=== PATIENT | male | born 1945 | race Caucasian/White ===

== ENCOUNTER 2019-01-15 14:42 | Inpatient (IN) | payer MEDICARE ==
[~2019-01-15] VITALS: Ht 170.2 cm; Wt 57.7 kg
[2019-01-15] MEDS ORDERED: VENTOLIN HFA18 GM INH (15:55)
--- NOTE | 2019-01-15 18:20 | NUR ---
PT ABLE TO SCOOT SELF FROM GURNEY TO BED WITH SOME EFFORT. PT ALERT AND ORIENTED X4, DISPLAYS DIFFICULTY BREATHING WITH ACTIVITY. SIMPLE MASK IS IN PLACE AT THIS TIME. PT WELL ABLE TO FOLLOW DIRECTION.
--- NOTE | 2019-01-15 18:38 | NUR ---
IV SITE IS INTACT, NO REDNESS OR SWELLING NOTED, PT DENIES PAIN WITH FLUSH. PT DENIES PAIN AND NAUSEA IN GENERAL. PT HAS BIPAP IN PLACE, CAROLINE WELL. PT DENIES NUMBNESS IN GENERAL.
--- NOTE | 2019-01-15 19:46 | EKG ---
[facility] [address] [facility] [place] [address] Signed Sinus tachycardia Nonspecific intraventricular conduction delay Borderline ECG No previous ECGs available Confirmed by HUAN CHAPARRO DO ([id number]) on 01/15/2019 7:46:19 PM Electronically Signed By: HUAN CHAPARRO DO 01/15/19 194 PATIENT NAME: YSABEL KOVACS Electrocardiogram DATE OF : 43 PHYSICIAN: HUAN CHAPARRO DO REPORT #: [id number] REPORT IS CONFIDENTIAL AND NOT TO BE RELEASED WITHOUT AUTHORIZATION
--- NOTE | 2019-01-15 19:54 | NUR ---
PT IS ASLEEP WITH BIPAP IN PLACE. WILL ALLOW TO SLEEP FOR NOW.
--- NOTE | 2019-01-15 20:23 | NUR ---
PT WILL AWAKEN TO SAY A FEW WORDS. CONT TO REST COMFORTABLY ON BIPAP. FAMILY IN ROOM. HEALTH HX OBTAINED FROM .
--- NOTE | 2019-01-15 21:30 | NUR ---
IS AWAKE AND VISITING WITH WITH BIPAP IN PLACE. PT STATES HE IS FEELING BETTER AND THAT THE BIPAP IS HELPING TO OPEN UP HIS LUNGS.
--- NOTE | 2019-01-16 00:38 | NUR ---
RT IN TO GIVE NEB. PT BACK ON BIPAP.
--- NOTE | 2019-01-16 02:30 | NUR ---
CONT TO SLEEP WITH BIPAP IN PLACE
--- NOTE | 2019-01-16 04:26 | NUR ---
PT AWAKE TO VOID. OFF MASK BRIEFLY FOR DRINK OF SODA, DID NOT DESAT AND NO INC WORK OF BREATHING. STATES HAS BEEN SLEEPING LIKE A LOG AND THAT THE BIPAP ISN'T BOTHERING ME. WEARING BIPAP WHILE SLEEPING IS ENCOURAGED.
--- NOTE | 2019-01-16 07:30 | NUR ---
REPORT RECIEVED. IN BED WITH BIPAP ON.
--- NOTE | 2019-01-16 08:30 | NUR ---
ASSESSMENT DONE. BIPAP OFF. O2 AT 3.5 L PER NC APPLIED. PATIENT STATES HE SLEPT WELL LAST NIGHT AND FEELS MUCH BETTER TODAY. CLEAR LIQUIDS ORDERED. LUNGS ARE WITH DIMINISHED BREATH SOUNDS THROUGHOUT.
--- NOTE | 2019-01-16 09:00 | NUR ---
DR. CHAPARRO HERE TO SEE PATIENT AND TALK WITH PATIENT AND FAMILY. REMAINS OFF BIPAP. IS WITH INCREASED WORK OF BREATHING WITH MILD EXERTION.
--- NOTE | 2019-01-16 09:41 | NUR ---
back on bipap. 35% FIO2 I-16,E-8.
--- NOTE | 2019-01-16 10:00 | NUR ---
BACK ON O2 AT 3.5 L NC. IS WATCHING TV AND TAKING FEW BITES OF JELLO AND PUDDING.
--- NOTE | 2019-01-16 10:28 | NUR ---
REMAINS ON O2 AT 3.5 L NC. IN ROOM.
--- NOTE | 2019-01-16 11:43 | NUR ---
RESUMING CARE OF THIS PATIENT AT THIS TIME. PT SITTING UP IN BED ON RIGHT SIDE WITH PT'S AT BEDSIDE. PT STATES HE IS MORE HUNGRY AND DECIDING ON SOMETHING FOR LUNCH. SOME EXP WHEEZING NOTED IN LUNGS, BUT OVERALL STILL VERY DIMINISHED BREATH SOUNDS. PT REMAINS ON 4 L OXYGEN VIA NASAL CANNULA. PT FINISHED NEB TX WITH RT. CONTINUE TO MONITOR CLOSELY.
--- NOTE | 2019-01-16 12:25 | NUR ---
PATIENT LYING IN BED, EATING HIS LUNCH. SP02 93% CURRENTLY. PT VOID INTO URINAL INDEPENDENTLY WHILE IN BED. WILL CONITNUE TO MONITOR.
--- NOTE | 2019-01-16 13:40 | NUR ---
ON BIPAP. PATIENT HAS BEEN LAYING ON RIGHT SIDE, WILL NOT LAY ON LEFT SIDE OR BACK. STATES "THIS IS THE WAY I ALWAYS LAY" ROUTINE SOLUMEDROL IV GIVEN.
--- NOTE | 2019-01-16 15:13 | NUR ---
NO FUTHER CHANGES, PATIENT IS RESTFUL.
--- NOTE | 2019-01-16 16:00 | NUR ---
ASSESSMENT DONE. SOMEWHAT FRUSTRATED REGARDING CORDS/IV TUBING AND STAFF COMING INTO TALK TO HIM. IS WITH EXTREME SHORTNESS OF BREATH WITH ANY EXERTION WHEN BIPAP OFF.
--- NOTE | 2019-01-16 18:41 | NUR ---
SITTING UP IN BED FOR DINNER. O2 AT 3.5 NC WHILE EATING.
--- NOTE | 2019-01-16 19:17 | NUR ---
REPORT TO NEXT SHIFT. TOOK DINNER WELL. O2 AT 3 L NC.
--- NOTE | 2019-01-16 20:13 | NUR ---
PT RESTING IN BED WITH BIPAP ON. PT REPORTS AGITATION AND DROWSINESS. AAOX4. SINUS TACH WITH BBB ON MONITOR. BUL DIMINISHED WITH EXPIRATORY WHEEZE NOTED, BLL DIMINISHED, NO COUGH, DYSPNEA WITH EXERTION, SPO2 99% WITH BIPAP 16/8 FIO2 35%. BOWEL TONES ACTIVE, DENIES NAUSEA BUT REPORTS NAUSEA AT NIGHT AND REQUESTING BEDSIDE TUMS, EDUCATION PROVIDED. VOIDING QS. IV SITES, FLUSHED, PATENT AND INTACT. INTEGUMENTARY GROSSLY INTACT, REFUSING TURNING. UPDATED PLAN OF CARE. REINFORCED SAFETY AND FALL PRECAUTIONS. EDUCATION PROVIDED ON NAUSEA MEDICATION AND USES, PT REFUSED, PT REPORTS AGGITATION WITH NOT HAVING PERSONAL MEDICATIONS AT BEDSIDE, REINFORCED MEDICATION SAFETY. EDUCATION PROVIDED ON TURNING, REFUSING TO TURN OR MOVE, REPORTS MINIAL ACTIVITY AND BEDREST AT HOME, REINFORCED EDUCATION. DENIES OTHER NEEDS. CALL LIGHT WITHIN REACH.
--- NOTE | 2019-01-16 20:44 | NUR ---
CALL LIGHT ANSWERED, PT REQUESTING MASK ADJUSTMENT AND DRINK, PROVIDED. BIPAP MASK PLACED AND NO LEAK NOTED. DENIES OTHER NEEDS.
--- NOTE | 2019-01-16 22:43 | NUR ---
PT AWAKENS EASILY. INFORMED OF SHEEP SHEARER, USE AND POSSIBLE SIDE EFFECTS. PT STATES HE'S TAKEN MEDICATION BEFORE AND KNOWS. DENIES OTHER NEEDS. CALL LIGHT WITHIN REACH. PT REMAINS ON BIPAP AND TOLERATING WELL.
--- NOTE | 2019-01-16 23:53 | NUR ---
R/T IN ROOM TO ASSESS PT AND GIVEN NEB. PT CURRENTLY ON 3.5 L NC, INCREASED WOB NOTED, DENIES SOB. MILD IMPROVEMENT OF AIR MOVEMENT TO BLL. NO OTHER ACUTE CHANGES TO ASSESSMENT. DENIES OTHER NEEDS. CALL LIGHT WITHIN REACH.
--- NOTE | 2019-01-17 00:41 | NUR ---
PT PLACED BACK ON BIPAP AT THIS TIME
--- NOTE | 2019-01-17 02:00 | NUR ---
PT REMAINS RESTFUL AND ON BIPAP. RESIRATIONS EVEN AND UNLABORED. NO ACUTE DISTRESS.
--- NOTE | 2019-01-17 04:00 | NUR ---
PT REMAINS ON BIPAP AND RESTFULL.
--- NOTE | 2019-01-17 05:30 | NUR ---
NO ACUTE CHANGES TO ASSESSMENT
--- NOTE | 2019-01-17 06:00 | NUR ---
PT UP IN BED REQUESTING FOOD AND SODA, PROVIDED. PT PLACED ON 2L NC. DENIES OTHER NEEDS. CALL LIGHT WITHIN REACH
--- NOTE | 2019-01-17 07:54 | NUR ---
PT VOIDED INTO HIS URINAL, BKF HAS BEEN ORDERED. CASE MANAGEMENT INTO SEE PT AT THIS TIME.
--- NOTE | 2019-01-17 08:47 | NUR ---
PT SITING IN BED EATING BKF, AT TIMES HE APPEARS TO BE VERY SOB, BUT STATES "NO". HE IS USING THE URINAL PROVIDES CLEAR YELLOW URINE.
--- NOTE | 2019-01-17 10:41 | NUR ---
PT UP TO THE CHAIR WITH PHYSICAL THERAPY AT THIS TIME. PT BECOMES VERY SOB SPO2 DECREASD TO 89 [address] LINES CHANGED.
--- NOTE | 2019-01-17 12:00 | NUR ---
PT REMAINS UP IN THE CHAIR AT THIS TIME. PT PLACED ON BIPAP TO SEE IF IT WOULD HELP WITH HEART RATE, BUT NOT AT THIS TIME. PT CONTIOUES TO BE IN THE 1-TEENS AND SPO2 INCREASED TO 99% ON BIPAP.
--- NOTE | 2019-01-17 12:24 | NUR ---
FAMILY INTO VISIT AT THIS TIME. PT REMAINS ON BIPAP.
--- NOTE | 2019-01-17 12:29 | NUR ---
PT REMOVED FROM BIPAP AT THIS TIME, PLACED BACK ONTO VA AT THIS TIME. PT WAS UNABLE TO TALK AND VISIT WITH .
[2019-01-17] MEDS ORDERED: ATROVENT HFA12.9 GM INH (12:38)
--- NOTE | 2019-01-17 13:39 | NUR ---
PT SITTING IN CHAIR, AT HIS SIDE. PT ON NC O2, AND SPEAKING IS DIFFICULT FOR PT. HE WAS BEGINNING TO EAT G. CHEESE SANDWICH FOR LUNCH. PT BEGAN TO TELL ME THAT THE FOOD IS TERRIBLE AND HE IS SURE IT IS COOKED OUTSIDE SAH. NOT MUCH OF ANYTHING SEEMED TO BE TO HIS LIKING, GAVE ENCOURAGEMENT. HE DID SAY THAT HE DIDN'T FEEL GOOD AND THAT MAY HAVE SOMETHING TO DO WITH IT. GAVE PT BLESSING, WILL FOLLOW NEEDED
[2019-01-17] MEDS ORDERED: VITAMIN D32000 UNI1 PO (13:47)
[2019-01-17] MEDS ORDERED: METHOTREXATE2.5 MG PO (13:47)
[2019-01-17] MEDS ORDERED: FOLIC ACID0.4 MG PO (13:48)
[2019-01-17] MEDS ORDERED: CALCIUM 500 +1 EAC2 PO (13:48)
--- NOTE | 2019-01-17 13:49 | NUR ---
MED REC COMPLETE
--- NOTE | 2019-01-17 14:36 | NUR ---
I & O'S COMPLETED. PT BACK TO BED, HE HAS AN ANSWER FOR EVERY THING THAT YOU ASK HIM TO COMPLETE SO THAT HE CAN'T COMPLETE THEM DUE TO SOB. PT IS NOT HAPPY ABOUT ALL THE TUBES AND LINES AT THIS TIME. EXPLAINED THE RESON FOR THEM, BUT HE DOES NOT CARE FOR THEM. PT EDUCATION GIVEN FOR MEDICATIONS AND EXB COPD. PT LIKES "YA I CAN READ IT"
--- NOTE | 2019-01-17 15:26 | NUR ---
PT WATCHING TV AT THIS TIME. URINAL WITHIN REACH AT THIS TIME.
--- NOTE | 2019-01-17 16:42 | NUR ---
DINNER ORDER FOR PT THIS EVENING. PT IS STILL NOT HAPPY WITH THE FOOD HERE, BUT STAFF IS TRYING.
--- NOTE | 2019-01-17 16:59 | NUR ---
DINNER ORDER FOR PT THIS EVENING. HE WANTS TO REMAIN IN BED FOR HIS MEAL THIS EVENING.
--- NOTE | 2019-01-17 17:39 | NUR ---
PATIENT IN BED, DINNER, CAME PATIENT REFUSED X3 TIMES TO LAY ON HIS BACK WHILE EATING, PATIENT STATES HE DOESN'T SLEEP OR SIT WELL ON HIS BACK
--- NOTE | 2019-01-17 17:40 | NUR ---
PT DINNER IS HERE AND TRYING TO GET PT SET UP TO EAT. PT IS REFUSING TO SIT UPRIGHT IN BED ON HIS BUTT. HE WANTS TO LYE ON HIS RIGHT SIDE WITH HIS DINNER TRAY IN HIS FACE. PT GET UPSET WHEN TRYING TO EXPLAINE THE ISSUES WITH CHOKING AND HE DOES NOT WANT TO MOVE OR OR TURN TO HIS BACK. "I AM JUST FINE"
--- NOTE | 2019-01-17 18:31 | NUR ---
PT IS BACK INTO VISIT AT THIS TIME. PT REPOSITIONED IN BED AND BLOOD PRESSUER RECHECKED AND CUFF CHANGED TO THE SAMLL ONE. SEE VITAL SIGN FLOW SHEET.
--- NOTE | 2019-01-17 20:28 | NUR ---
ASSESSMENT DONE. pt RESTING IN BED "TRYING TO SLEEP." REPOSITIONED FOR ACURATE BLOOD PRESSURE. pt REQUESTED "TUMS, I'M GETTING A STOMACHACHE FROM THAT TURKEY" NIO ENTERED. URNINAL EMPTIED. ROOM TIDIED. NIGHTLY CARES DONE. CALL LIGHT WITHIN REACH.
--- NOTE | 2019-01-17 22:03 | NUR ---
MEDICATION GIVEN (SEE MAR). REPOSITIONED FOR MORE ACCURATE BLOOD PRESSURE. TURNED UP ROOM TEMPERATURE PER REQUEST. NO FURTHER REQUESTS AT THIS TIME. CALL LIGHT WITHIN REACH.
--- NOTE | 2019-01-18 00:36 | NUR ---
pt AWAKE. ASSESSMENT DONE. PROVIDED FOOD AND DRINK PER REQUEST. EMPTIED URINAL. VITALS AND I&O RECORDED. NO FURTHER REQUESTS AT THIS TIME. CALL LIGHT WITHIN REACH.
--- NOTE | 2019-01-18 01:37 | NUR ---
O2 SAT 84%, IN TO ASSESS pt. pt STATED "I DON'T FEEL SHORT OF BREATH, I'VE JUST BEEN EATING" pt PAUSED MID-SENTENCE TO BREATH. O2 INCREASED TO 4L VIA NC. RT IN ROOM, PLACED pt ON BIPAP.
--- NOTE | 2019-01-18 02:21 | NUR ---
ROUNDED ON pt. RESTING IN BED, BIPAP ON, O2 SAT 97%. NO NEEDS AT THIS TIME. CALL LIGHT WITHIN REACH.
--- NOTE | 2019-01-18 03:30 | NUR ---
ROUNDED ON pt. RESTING WITH EYES CLOSED, BIPAP ON, SAT 98%. CALL LIGHT WITHIN REACH.
--- NOTE | 2019-01-18 05:00 | NUR ---
MOVED pt FROM BiPAP TO NC ON 3 LITERS. ASSESSMENT DONE. NO CHANGES FROM PRIOR ASSESSMENT. NO REQUESTS AT THIS TIME. CALL LIGHT WITHIN REACH.
--- NOTE | 2019-01-18 06:00 | NUR ---
REPOSITIONED pt FOR ACCURATE BLOOD PRESSURE. NO REQUESTS AT THIS TIME. CALL LIGHT WITHIN REACH.
--- NOTE | 2019-01-18 07:30 | NUR ---
PATIENT SHIFT REPORT RECIEVED FROM PERSONNEL PSYCHOLOGIST RN. PATIENT RESTING IN BED AT THIS TIME AND DENIES ANY NEEDS. WILL CONTINUE TO CLSOELY MONITOR. CALL LIGHT IN REACH.
--- NOTE | 2019-01-18 08:45 | NUR ---
PATIENT RESTING IN BED. NEW IV PLACED IN RIGHT FOREARM. DC'D OTHER TWO IVS D/T LEAKING AND NOT PATENT. PATIENT TOELRATED WELL. PATIENT IS RESTING IN BED. BREAKFAST ORDERED. PATIENT GETS SOB WITH LITTLE MOVEMENT. PATIENT FAVORS RIGHT SIDE FOR COMFORT. ASSESSMENT COMPLETED. BREATH SOUNDS CLEAR AND DIMINISHED. BOWEL TONES ACTIVE. FRESH TEA AT THE BEDSIDE. WILL CONTINUE TO CLOSELY MONITOR.
--- NOTE | 2019-01-18 10:22 | NUR ---
PATIENT RESTING IN BED AT THIS TIME. BREAKFAST FINISHED. PATIENT NOTED TO GET VERY SOB WITH MINIMAL MOVEMENT. PATIENT IS PARTICULAR IN HOW HE DOES THINGS. PATIENT IS NOT USE TO HAVING HELP AND WOULD PREFER TO DO THINGS HIMSELF. PATIENT ALSO PREFERS TO LAY ON HIS RIGHT SIDE CURLED UP. OFFERED TO HELP PATIENT MOVE AND PATIENT DECLINED. WILL CONTINUE TO CLOSELY MONITOR.
--- NOTE | 2019-01-18 10:28 | NUR ---
PATIENT SHIFT REPORT RECIEVED FROM ASSOCIATE ACCOUNT MANAGER RN. PATIENT RESTING IN BED AT THIS TIME AND DENIES ANY NEEDS. WILL CONTINUE TO CLSOELY MONITOR. CALL LIGHT IN REACH.
--- NOTE | 2019-01-18 11:42 | NUR ---
RT DONE WITH NEB TREATMENTS. PATIENT DENIES WANTING TO EAT AT THIS TIME AND SAYS "I JUST FINISHED MY BREAKFAST NOT TO LONE AGO". EDUCATED PATIENT TO CALL WHEN HE FEELS READY TO ORDER SOMETHING. PATIENT ALSO UPDATES STAFF THAT HE IS STARTING TO FEEL THE URGE TO HAVE A BM, BUT DOES NOT FEEL HE CAN TOLERATE GETTING UP RIGHT NOW. OFFERED PATIENT A BEDPAN. PATIENT DENEID AND STATED "I WANT TO TAKE A LITTLE NAP FIRST AND CATCH MY BREATH AND ONCE I DO THAT I WILL TRY TO GET UP". PATIENT ASSESSMENT COMPELTED AND REMAINS UNCAHNGED FROM PRIOR ASSESSMENT. WILL CONTINUE TO CLOSELY MONITOR.
--- NOTE | 2019-01-18 13:05 | NUR ---
PATIENT REQUESTED SOMETHING FOR ACID REFLUX. PATIENT STATES "I PREFER TUMS, THATS WHAT I TAKE AT HOME. PER MD OKAY TO GIVE TUMS. NO OTHER NEEDS AT THIS TIME. PATIENT WANTS TO GET UP TO THE CAMMODE SHORTLY. PATIENT STATED "I WILL CALL WHEN I AM READY". CALL LIGHT IN REACH. WILL CONTINUE TO CLOSELY MONITOR.
--- NOTE | 2019-01-18 15:00 | NUR ---
PATIENT UP TO THE BEDSIDE CAMMODE AND PATIENT TOELRATED WELL. DID PLACE PATIENT ON OXYMASK WHILE GETTING UP TO CAMMODE D/T HIM MOUTH BREATHING AND INCREASED OXYGEN TO 6L WITH ACTIVITY. PATIENT BACK TO BED AND SPO2 93% ON 4L. PATIENT TOLERATED WELL. PATIENT REPORT GIVEN TO CATIE WALKER. WILL TRANSFER PATIENT TO MED SURG ROOM 120. PATIENT DENIES ANY NEEDS AT THIS TIME.
--- NOTE | 2019-01-18 15:31 | NUR ---
1522: Pt arrived to med-surg via a bed transfer. Report recieved from Geraldine WALKER. PT states his breathing "feels better" than it has been. Sat is 91% on 4l on arrival. Pt oriented to his room and given his call rodriguez.
--- NOTE | 2019-01-18 16:19 | NUR ---
PT resting in his bed and he denies any problems at this time.
--- NOTE | 2019-01-18 16:33 | NUR ---
PATIENT TRANSFERED TO ROOM 120 WITH HIS BELONGINGS. CATIE RN IN ROOM TO SEE PATIENT. RESPIRATORY THERAPIST BROUGHT THE BIPAP OVER FOR TONIGHT. ALL QUESTIONS ANSWERED. WILL CONTINUE TO CLOSELY MONITOR.
--- NOTE | 2019-01-18 18:11 | NUR ---
PT REPOSITIONED AND IS NOW SITTING UP EATING HIS DINNER.
--- NOTE | 2019-01-18 19:17 | NUR ---
SHIFT REPORT RECIEVED FROM CATIE WALKER. PT FAMILY IN ROOM. NO NEEDS. CALL LIGHT IN REACH.
--- NOTE | 2019-01-18 20:09 | NUR ---
ASSESSMENT, VS AND I&O COMPLETED. PT ON BIPAP, SPO2 93%. IV FLUIDS INFUSING PER ORDER. IV CDI, WNL, FLUSHED WELL. NO OTHER NEEDS AT THIS TIME. CALL LIGHT IN REACH.
--- NOTE | 2019-01-18 21:25 | NUR ---
CHEESE PACKER ROUNDING NOTE. BIPAP ALARMING, SUPERVISOR PAINT TO ROOM. PT REMOVED BIPAP MASK FOR A DRINK. PT ASSISTED TO TAKE A DRINK AND REPLACE MASK. SAO2 86%, PT AGREES THAT HE IS SHORT OF BREATH. PT ENCOURAGED TO CALL FOR NEEDS. CALL LIGHT IN REACH. ROOM IN VIEW OF RN STATION. WHITE BOARD UDPATED.
--- NOTE | 2019-01-18 21:46 | NUR ---
SCHWEDULED MED PROVIDED. PT REQUEST TO BE OFF BIPAP FOR AWHILE. PT PLACED ON 4L OXIMASK, SPO2 94%. ICED TEA PROVIDED. NO OTHER NEEDS. CALL LIGHT IN REACH.
--- NOTE | 2019-01-18 22:37 | NUR ---
PT RESTING IN BED, WATCHING TV. RR 18, EVEN, OXIMASK @4L, SPO2 96%. NO NEEDS AT THIS TIME. CALL LIGHT IN REACH.
--- NOTE | 2019-01-19 01:02 | NUR ---
PT AWAKE IN ROOM, WATCHING TV. NO NEEDS AT THIS TIME. CALL LIGHT IN REACH.
--- NOTE | 2019-01-19 01:16 | NUR ---
PT USING URINAL, EMPTIED. SPO2 92% ON 4L OXIMASK. PT COMPLAINS OF STOMACH UPSET, PRN GI UPSET MED PROVIDED. NEW BAG IV FLUIDS PROVIDED. NO OTHER NEEDS. CALL LIGHT IN REACH.
--- NOTE | 2019-01-19 03:30 | NUR ---
PT RESTING IN BED, WATCHING TV. NO NEEDS AT THIS TIME. CALL LIGHT IN REACH.
--- NOTE | 2019-01-19 05:02 | NUR ---
PT AWAKE IN ROOM. ASSESSMENT I& O AND VITALS COMPLETED. PT PLACED BACK ON BIPAP AT 35%. NO OTHER NEEDS. CALL LIGHT IN REACH.
--- NOTE | 2019-01-19 06:04 | NUR ---
PT RESTING IN BED, EYES CLOSED. BIPAP AT 35%. SCHEDULED MED PROVIDED. NO OTHER NEEDS. CALL LIGHT IN REACH.
--- NOTE | 2019-01-19 06:20 | NUR ---
PT HAS NOT SLEPT WELL THIS SHIFT. PT TOLERATED OXYMASK ON 4L AND BIPAP @ 35% WELL THIS SHIFT. PT TAKES AN EXTENDED AMOUNT OF TIME TO URINATE IN URINAL. LUNGS DIMINISHED IN ALL LOBES PLUS TIGHT IN UPPER LOBES. SPO2 TRENDING IN LOW 90s WITH 4L. UO SUFFICIENT. VSS. A & O X3.
--- NOTE | 2019-01-19 07:00 | NUR ---
PATIENT SLEPT WELL. CALL LIGHT IN REACH AND FRESH WATER GIVEN
--- NOTE | 2019-01-19 07:24 | NUR ---
RECIEVED BEDSIDE REPORT FROM DENISE JONES. PT IS SLEEPING, BIPAP IN PLACE.
--- NOTE | 2019-01-19 09:29 | NUR ---
PT IS RESTING WITH BIPAP ON. PT TOOK ABOUT 45 MIN TO USE THE URINAL AND SPILLED MOST OF IT. PT REFUSES ASSISTANCE. PT REFUSED BREAKFAST, STATED THE [place]OH[place] MUFFIN WAS "A WARMED OVER ROLL".
--- NOTE | 2019-01-19 19:46 | NUR ---
REPORT RECEIVED FROM DAY SHIFT RN. PT LYING ON LEFT SIDE RESTING WITH EYES CLOSED. BI-PAP IN PLACE, NAD. CALL LIGHT IN REACH.
--- NOTE | 2019-01-19 20:06 | NUR ---
SOLAR ENERGY SPECIALIST ROUNDING NOTE. PT RESTING IN BED WITH EYES CLOSED. DOES NOT WAKE WHILE NUCLEAR WEAPONS SPECIALIST IN ROOM. BIPAP IN PLACE APPROPRIATELY. CALL LIGHT IN REACH. ROOM IN VIEW OF RN STATION. WHITE BOARD UPDATED.
--- NOTE | 2019-01-19 22:00 | NUR ---
PT VOIDED 300 ML DARK YELLOW URINE, URINAL EMPTIED. EVENING ASSESSMENT COMPLETE. PM MEDS GIVEN WITHOUT ISSUE. BIPAP IN PLACE. RR 20. LUNGS DIMINISHED. OFFERED TO ASSIST PT TO REPOSITION IN BED, BUT HE REFUSED. NO FURTHER NEEDS AT THIS TIME. CALL LIGHT IN REACH.
--- NOTE | 2019-01-19 23:05 | NUR ---
pt requested chocolate pudding and nothing else.
--- NOTE | 2019-01-19 23:08 | NUR ---
PT ON 4L NC TO EAT CHOCOLATE PUDDING AND DRINK TEA. TOLERATING WELL. PT STATES HE'S FEELING BETTER THIS EVENING AFTER GETTING SOME REST. WILL PLACE BACK ON BIPAP AFTER EATING.
--- NOTE | 2019-01-20 00:10 | NUR ---
PT BACK ON BIPAP AT 35%. RT IN ROOM ADMINISTERING BREATHING TX. CALL LIGHT IN REACH.
--- NOTE | 2019-01-20 03:15 | NUR ---
PT RESTING IN BED WITH EYES CLOSED ON RIGHT SIDE. BIPAP IN PLACE AT 35%. RR EVEN AND UNLABORED. SATS 97%. CALL LIGHT IN REACH.
--- NOTE | 2019-01-20 05:28 | NUR ---
PT RESTED WELL. ALERT AND ORIENTED. LUNGS DIM, BIPAP AT 35% O2 SATS MID TO HIGH 90'S. SWITCHED TO 4L NC FOR PT TO EAT, PT CAROLINE WELL AND MAINTANED SATS >92%. PT BECOMES SOB WITH ANY EXERTION. LAYS MOSTLY ON RIGHT SIDE, REFUSED TO BE POSITIONED. USES URINAL IN BED, TAKES QUITE SOME TIME AND REFUSES ASSISTANCE. DENIES PAIN.
--- NOTE | 2019-01-20 05:45 | NUR ---
PT SPILLED CONTENTS OF URINAL. NEW GOWN AND LINEN PROVIDED. PT OFF BIPAP TO HAVE SNACK. 4L NC IN PLACE. CALL LIGHT IN REACH.
--- NOTE | 2019-01-20 07:27 | NUR ---
RECIEVED BEDSIDE REPORT FROM DENISE DIANE. PT IS ALSEEP ON HIS SIDE, IN HIS PREFERED POSITION. HE HAS REFUSED TO BE TURNED ALL NITGHT. HAS STAYED ON BIPAP EXCEPT TO EAT PUDDING. USES URINAL IN BED.
--- NOTE | 2019-01-20 08:02 | NUR ---
PT IS RESTING IN BED ON BIPAP. PT DECLINED TO CHANGE POSTION OFF RIGHT SIDE OR REMOVE BIPAP. RT IN ROOM TO PROVIDE TREATMENT. ON BIPAP PT IS MAINTAINING O2 SAT OF 95-97%, BUT REQUIRES MAXIMUM EFFORT TO BREATHE. USES URINAL IN BED, TAKES EXTENDED TIME AND GETS IRRITATED IF ASSISTANCE IS OFFERED.
--- NOTE | 2019-01-20 09:05 | NUR ---
PATIENT HASNT USED THE RESTROOM, THIS CNA2 TRIED TO ASSIST AND ALSO HELP PATIENT EAT AND HE DID NOT WANT ANY HELP AT ALL, WILL REPORT TO THE NURSE
--- NOTE | 2019-01-20 09:07 | NUR ---
PT IS REFUSING TO REPOSITION, YELLING AND HITTING AT STAFF WHEN THEY APPROACH HIM ABOUT REPOSITIONING. PT HAS NOT USED THE URINAL, REFUSES TO ALLOW STAFF TO ASSIST WITH THE URINAL, CANNOT TOLERATE GETTING UP TO USE BSC OR WALK TO THE [facility]. 200ML OF PO FLUIDS, NO PO FOOD INTAKE.
--- NOTE | 2019-01-20 10:00 | NUR ---
PATIENT DOES NOT WANT TO BE REPOSITIONED OR ASSISTANCE EATING
--- NOTE | 2019-01-20 11:34 | NUR ---
SPOKE WITH PT'S ABOUT HIS NIGHT. DISCUSSED WHAT THIS RN HAS SEEN THIS SHIFT. SHE SPOKE WITH RT IN THE ROOM. SHE IS STILL THINKING ABOUT HOSPICE.
--- NOTE | 2019-01-20 14:00 | NUR ---
PATIENT DOES NOT WANT TO BE REPOSITIONED TO EAT LUNCH
--- NOTE | 2019-01-20 16:21 | NUR ---
RT UNAVAILABLE FOR AFTERNOON BREATHING TREATMENT, RN PROVIDED TREATMENT. PT TOLERATED WELL. PT REQUESTED TO BE PLACED BACK ON BIPAP AFTER THE TREATMENT. BIPAP REPLACED. ALL PERSONAL BELONGINGS SETTLED PER PT PREFRENCE. PT SLEEPING AT THIS TIME.
--- NOTE | 2019-01-20 17:47 | NUR ---
PT'S IN ROOM, WANTING AN UPDATE ON PT. NO CHANGE SINCE SHE WAS HERE THIS AFTERNOON. PT REQUESTED HIS BIPAP BE TAKEN OFF SO HE COULD TALK TO HIS . RN TOLD PT AND HIS THAT DR NOLASCO APPROCHED THE SUBJECT OF COMFORT CARE OR CHANGING HIS POLST AND PT WAS NOT INTERESTED IN THAT DISCUSSION AT THIS TIME. PT'S STATES THAT IT WILL BE TOTALLY HIS DESCISION "THERE IS NOTHING WRONG WITH HIS HEAD." PT STATES THAT HE WILL NOT EAT THE FOOD HERE IT IS "THE WORST CAFERTIERA FOOD I'VE EVER HAD IN MY LIFE." HE IS ONLY EATING FRUIT AND PUDDING AND DRINKING ICE TEA.
--- NOTE | 2019-01-20 18:02 | NUR ---
PT HAS BEEN ON BIPAP AT TIMES TODAY, WILL REQUEST TO TAKE IT OFF AND BE ON O2 NC AT 4L. PT HAS REFUSED TO TURN ALL DAY, DESPITE Q2H ASKING. PT HAS REFUSED TO GET UP TO BATHROOM, USES URINAL IN BED. TAKES EXTENDED AMOUNT OF TIME TO USE URINAL IN BED. PT REFUSED TO DISCUSS GOAL OF CARE OR CODE STATUS WITH DR NOLASCO.
--- NOTE | 2019-01-20 19:49 | NUR ---
REPORT RECEIVED FROM DAY SHIFT RN. PT IN BED, BIPAP IN PLACE. O2 SATS 95% ON 35%. NC 4L PLACED PRN FOR C/O INDIGESTION GIVEN. WARM WASHCLOTH PROVIDED FOR FACE. URINAL GIVEN. CALL LIGHT IN REACH.
--- NOTE | 2019-01-20 21:00 | NUR ---
PT REMAINS ON 4L NC, STATES THE BIPAP WAS GETTING HOT AND HE JUST NEEDS A BREAK. OXYGEN SATS 93%.
--- NOTE | 2019-01-20 22:10 | NUR ---
EVENING ASSESSMENT COMPLETE. LUNGS DIMINISHED. 4L NC IN PLACE, SATS 94%. RR 22. EVENING MEDS GIVEN WITHOUT ISSUE. PT REFUSING TO BE REPOSITIONED IN BED, REMAINS ON RIGHT SIDE. FRESH ICED TEA PROVIDED. NO FURTHER NEEDS AT THIS TIME. CALL LIGHT IN REACH.
--- NOTE | 2019-01-20 23:13 | NUR ---
PT PLACED BACK ON BIPAP AT 35% O2. DENIES OTHER NEEDS AT THIS TIME. CALL LIGHT IN REACH.
--- NOTE | 2019-01-21 01:02 | NUR ---
PT RESTING IN BED ON RIGHT SIDE WITH EYES CLOSED. BIPAP IN PLACE AT 35% O2. RR 22, EVEN AND UNLABORED. OXYGEN SATS 95%. CALL LIGHT IN REACH.
--- NOTE | 2019-01-21 04:33 | NUR ---
PT REQUESTING A BREAK FROM BIPAP SO HE CAN USE URINAL. 4L NC PLACED.
--- NOTE | 2019-01-21 05:40 | NUR ---
PT ATTEMPTED TO USE URINAL, SPILLED URINE ON HIS GOWN. NEW GOWN PROVIDED. VS AND I&O COMPLETE. MORNING MEDS GIVEN WITHOUT ISSUE. IVF INFUSING. FRESH ICED TEA, CRACKERS, AND POPSICLE PROVIDED PT REQUESTED. CALL LIGHT IN REACH.
--- NOTE | 2019-01-21 05:53 | NUR ---
PT RESTED WELL. ALERT AND ORIENTED. REFUSED TO BE REPOSITIONED OFF OF RIGHT SIDE. USES URINAL IN BED, TAKES SOME TIME DOING SO. LUNG SOUNDS DIM. BIPAP MOST OF THE NIGHT, OCCASIONAL BREAK WITH NC AT 4L. IVF. REG DIET, EATS SMALL AMOUNTS. VERY LIMITED ACTIVITY TOLERANCE. DENIES PAIN. PRN MAALOX GIVEN FOR INDIGESTION.
--- NOTE | 2019-01-21 06:54 | NUR ---
PT SPILLED URINAL ON HIMSELF. LINEN AND GOWN CHANGED, PT DID NOT TOLERATE ACTIVITY WELL. INCREASED SOB AND RESPIRATION WITH ACTIVITY, OXYGEN SATS DOWN TO 87% ON 4L NC. BIPAP PUT BACK ON, OXYGEN SATS CURRENTLY 95%. PT IN LESS DISTRESS, REQUESTING TO BE LEFT ALONE TO REST. CALL LIGHT IN REACH.
--- NOTE | 2019-01-21 07:36 | NUR ---
RECIEVED BEDSIDE REPORT FROM DENISE DIANE. PT SLEEPING ON RIGHT SIDE WITH BIPAP ON. PT HAS REQUESTED TO BE LEFT ALONE, HE IS TIRED FROM A PARTIAL BED CHANGE.
--- NOTE | 2019-01-21 08:58 | NUR ---
PT IS UNABLE TO MAINTAIN HIS O2 SATS ON NC AT 6L TO EAT, DROPED DOWN TO 78%. REPLACED OXYMASK AT 8L TO INCREASE O2 SATS TO LOW 90S. ADVISED RT AND DR NOLASCO. DR NOLASCO TALKED TO THE PATIENT AND WOULD LIKE HIS TO COME IN FOR A DISCUSSION.
--- NOTE | 2019-01-21 09:24 | NUR ---
CALLED PT'S X2, LINE WAS BUSY. WILL CALL AGAIN.
--- NOTE | 2019-01-21 09:40 | NUR ---
PT IS ON VAPO-THERM AT THIS TIME SO HE CAN EAT. HE IS ABLE TO MAINTAIN SATS AT THIS TIME. PER RT, HE HAS A VOLUME PROBLEM, NOT AN OXYGENATION PROBLEM.
--- NOTE | 2019-01-21 10:06 | NUR ---
NOT TOLERATING VAPO THERM. SATS OF 86%. CALLED RT. HE WLLL BE RIGHT UP.
--- NOTE | 2019-01-21 10:12 | NUR ---
MADE CONTACT WITH PT'S DAUGHTER, FORREST AT [phone]. SHE WILL GET AHOLD OF MALLORY AND COME UP.
--- NOTE | 2019-01-21 10:30 | NUR ---
CARE CONFERENCE MET WITH DR NOLASCO WHO WAS SPEAKING WITH PATIENTS AND DAUGHTER REGARDING CARE PLAN GOING FORWARD FOR PATIENT. PATIENT HAS INDICATED TO DR NOLASOC THIS MORNING THAT HE DOES NOT WANT TO BE INTUBATED OR TRANSFERRED FOR FURTHER CARE. HE HAS TOLD HER HE "KNOWS" HE IS DYING AND HAS KNOWN FOR AWHILE. SHE DISCUSSED OPTIONS WITH FAMILY. PATIENT IS VERY SOB AND THEY WOULD LIKE HIM TO BE COMFORTABLE POSSIBLE. THEY ARE INTERESTED IN HOSPICE CARE. THEY WANT A CHANCE TO TALK WITH PATIENT TO MAKE SURE THIS IS REALLY WHAT HE WANTS. DAUGHTER AND STATE THAT HE HAS BEEN HOME BOUND FOR YEARS. THAT HE HAS BEEN SO SOB FOR OVER A YEAR AND HASN'T EVEN BEEN ABLE TO SHOWER. THEY STATE THIS HAS BEEN COMING FOR SOMETIME. ALL QUESTIONS ANSWERED BY DR NOLASCO AND MYSELF. WILL CONTINUE TO FOLLOW.
--- NOTE | 2019-01-21 11:08 | NUR ---
CARE CONFRENCE WITH KAREN Bridges, RN, SHARON, RN, OLYA, RN, DR NOLASCO, PT'S AND DAUGHTER. DISCUSSED PROGNOSIS, OPTIONS, AND PLAN OF CARE. DISCUSSED WHAT WOULD HAPPEN IF HE WAS SHIPPED OUT TO A HIGHER LEVEL OF CARE, HE WOULD BE AWAY FROM HIS FAMILY, WOULD NOT SURVIVE OFF THE MACHINE. ALSO DISCUSSED THE OPTION OF TRANSTIONING TO SWING BED AT [facility] FOR END OF LIFE CARE SYMPTOM MANAGEMENT. DISCUSSED THIS TRANSTION WOULD INCLUDE MEDICATIONS FOR COMFORT AND AIR HUNGAR, REMOVAL OF THE VAPO-THERM AND BIPAP. BOTH DAUGHTER AND AGREE THAT SWING BED AND END OF LIFE CARE WOULD BE THE BEST PLAN, BUT THEY WILL NOT MAKE THAT DECISION. THEY WILL DISCUSS THE OPTIONS WITH THE PATIENT AND ALLOW HIM TO MAKE THE DECSION OF WHAT HE WANTS TO DO. PT HAS VERBALIZED THAT HE KNOWS HE IS DYING AND WOULD LIKE TO BE COMFORTABLE. FAMILY LEFT THE ROOM PT IS USING THE URINAL.
--- NOTE | 2019-01-21 13:57 | NUR ---
CALLED PT'S FAMILY, HE HAS REQUESTED TO COME OFF THE BIPAP. NOW WOULD BE A GOOD TIME TO TALK TO HIM. FAMILY DID NOT WANT TO TALK TO HIM WHILE HE WAS ON BIPAP RE: DECISION MAKING. MADE CONTACT WITH MALLORY, HIS . SHE WILL BE UP SOON. CALLED RT TO TAKE PT OFF BIPAP AND PLACE ON VAPO-THERM.
--- NOTE | 2019-01-21 14:29 | NUR ---
DR NOLASCO VISITED WITH ME AND RERQUESTED I FOLLOW UP WITH PTS' FAMILY. PT HAS REQUESTED NO VISITORS. FAMILY IS GONE, WILL TRY TO CONNECT.
--- NOTE | 2019-01-21 14:53 | NUR ---
PT IS LAYING IN BED, UNABLE TO EAT MORE THAN A COUPLE BITES BEFORE REPLACING HIS OXYMASK. PT DID NOT WANT TO HAVE A CONVERSATION WITH HIS FAMILY ABOUT TRANSITIONING TO END OF LIFE CARE BECAUSE "HE CAN'T EAT AND BREATHE AT THE SAME TIME, HE REALLY CAN'T TALK, EAT, AND BREATHE AT THE SAME TIME." FAMILY STATES THEY WILL RETURN AT 5:30PM.
--- NOTE | 2019-01-21 19:36 | NUR ---
RECEIVED REPORT FROM DAY SHIFT RN. PATIENT IS RESTING IN BED. PATIENT DENIES ANY NEEDS. CALL LIGHT IN REACH.
--- NOTE | 2019-01-21 19:43 | NUR ---
ENTERED "DNR" ORDER PT AND DR NOLASCO SIGNED THE POLST, ON CHART
--- NOTE | 2019-01-21 20:22 | NUR ---
PATIENT PLACED ON BIPAP PER PATIENT REQUEST BY LISETH WALKER. PATIENT WAS HOLLERING OUT AND FOUND TO HAVE NO OXYGEN ON AT ALL AND RR WAS 44. PATIENT WAS PLACED ON BIPAP. PATIENTS OXYGEN LEVEL IS FOUND TO BE LOW. OXYGEN BLED INTO BIPAP. PATIENTS RR IS NOW 35. PATIENT DENIES ANY NEEDS.
== END 2019-01-21 20:20 | disposition swing bed (61) | DRG 189 ==
LOC: ED 14:42 → CCU 17:27 → MS 01-18 15:25
PROVIDERS: ADMIT Student in an Organized Health Care Education/Training Program
PROC: 5A09357 Assistance with Respiratory Ventilation, Less than 24 Consecutive Hours, Continuous Positive Airway Pressure (ICD-10-PCS; principal; 2019-01-15)
DX: J96.21 Acute and chronic respiratory failure with hypoxia (principal); J44.1 Chronic obstructive pulmonary disease with (acute) exacerbation; J96.11 Chronic respiratory failure with hypoxia; L40.0 Psoriasis vulgaris; N40.1 Benign prostatic hyperplasia with lower urinary tract symptoms; R35.0 Frequency of micturition; D69.59 Other secondary thrombocytopenia; T45.1X5A Adverse effect of antineoplastic and immunosuppressive drugs, initial encounter; Z66 Do not resuscitate; Z51.5 Encounter for palliative care; Z87.891 Personal history of nicotine dependence; Z99.81 Dependence on supplemental oxygen; Z79.899 Other long term (current) drug therapy
CPT/HCPCS: 36415; 36600; 71045; 80048; 80053; 82803; 83735; 84484; 85025; 87502; 93005; 93010; 94640; 94660; 96374; 96375; 97110; 97162; 97530; 99285-25; J0456; J0696; J1100; J1650; J2930; J7060; J7121

== ENCOUNTER 2019-01-21 20:21 | Inpatient (IN) | payer MEDICARE ==
[~2019-01-21 20:21] MED LIST: ATROVENT HFA12.9 GM INH; CALCIUM 500 +1 EAC2 PO; FOLIC ACID0.4 MG PO; METHOTREXATE2.5 MG PO; VENTOLIN HFA18 GM INH; VITAMIN D32000 UNI1 PO
--- NOTE | 2019-01-21 21:04 | NUR ---
PATIENT CONTINUES TO HAVE INCREASED RR. PATIENT GIVEN PRN MORPHINE PER ORDER FOR SOB. PATIENT REMAINS ON BIPAP. RT IN ROOM TO ADMINISTER NEB TX. PATIENT DENIES ANY NEEDS. CALL LIGHT IN REACH
--- NOTE | 2019-01-21 21:06 | NUR ---
PT TRANSFERED TO SWING BED, COMFORT STATUS.
--- NOTE | 2019-01-21 21:15 | NUR ---
AFTER RECEIVEING PRN MEDICATION AND NEB TX PATIENT APPEARS RELAXED. EYES ARE CLOSED, RR 36. PATIENT REMAINS ON BIPAP. NO NEEDS NOTED. CALL LIGHT IN REACH.
--- NOTE | 2019-01-21 21:48 | NUR ---
PATIENT IS RESTING IN BED RR CONTINUES TO BE 36. WHEN ASKING PATIENT IF HE FELT SOB PATIENT SHOOK HIS HEAD YES. PATIENT APPEARS ANXIOUS AND HAS BEEN CALLING OUT. PATIENT GIVEN PRN ANXIETY MEDICATION PER ORDER. PATIENT REASSURED. NO FURTHER NEEDS NOTED. CALL LIGHT IN REACH.
--- NOTE | 2019-01-21 22:06 | NUR ---
PATIENT APPEARS RELAXED. PATIENT IS RESTING IN BED WITH EYES CLSOED. PATIENT REMAINS ON BIPAP. RR 30. CALL LIGHT IN REACH.
--- NOTE | 2019-01-22 00:41 | NUR ---
PATIENT IS RESTING IN BED WITH EYES CLOSED, RR 28. PATIENT CONTINUES STO WEAR BIBPAP. PATIENT APPEARS COMFORTABLE. NO ACUTE DDISTRESS NOTED. CALL LIGHT IN REACH.
--- NOTE | 2019-01-22 01:22 | NUR ---
PATIENT REPOSITIONED IN BED. PATIENT REMAINS ON BIPAP. PATIENT APPEARS TO BE COMFORTABLE. NO ACUTE DISTRESS NOTED. PATIENTS CALL LIGHT IN REACH.
--- NOTE | 2019-01-22 02:35 | NUR ---
PATIENT IS RESTING IN BED WITH EYES CLOSED, RR 27. PATIENT REMAINS ON BIPAP. PATIENT APPEARS COMFORTABLE AND NO ACUTE DISTRESS NOTED. CALL LIGHT IN REACH.
--- NOTE | 2019-01-22 03:42 | NUR ---
PATIENT BECAME AGITATED AND RESTLESS IN BED. PATIENTS RR BECAME INCREASED. PATIENT GIVEN PRN MEDICATION FOR AGIATION PER ORDER. PATIENT REPOSITIONED IN BED. PATIENT REMAINS ON BIPAP. CALL LIGHT IN REACH.
--- NOTE | 2019-01-22 04:39 | NUR ---
PATIENT IS ON CONFORT CARE. PATIENT IS ON SWING BED STATUS. PATIENT HAS RESTED WELL THROUGHOUT THE SHIFT. PATIENT HAS RECEIVED PRN MEDICATION FOR SOB X2. PATIENT HAS RECEIVED X2 PRN MEDICATION FOR AGITATION. PAITENT HAS REMAINDED ON BIPAP THROUGHOUT THE SHIFT. PATIENT USES URINAL. PATIENTS IV IS SL AND FLUSHES WELL. PATIENT SHAES HEAD YES/NO WHEN ASKED QUESTIONE.
--- NOTE | 2019-01-22 05:18 | NUR ---
PATIENT IS RESTING IN BED. PATIENTS RR IS 27. PATIENT APPEARS COMFORTABLE. NAD NOTED. CALL LIGHT IN REACH. PATIENT REMAINS ON BIPAP.
--- NOTE | 2019-01-22 06:03 | NUR ---
PATIENTS ATTEND HAS A SCANT AMOUNT OF URINE. PATIENT EYES REMAINED CLOSED DURING ACITIVTY. PATIENTS RR IS 27. CALL LIGHT IN REACH. PATIENT APPEARS COMFORTABLE.
--- NOTE | 2019-01-22 06:55 | NUR ---
BEDSIDE HANDOFF REPORT RECEIVED FROM [employer] SALES CONSULTANT RN. PT SLEEPING, ON BIPAP, RR 23. PT APPEARS COMFORTABLE, RESPIRATIONS EVEN AND UNLABORED.
--- NOTE | 2019-01-22 07:54 | NUR ---
PT REPOSITIONED TO RIGHT SIDE, SUPPORTED WITH PILLOWS. PT RESPIRATIONS UNLABORED AND EVEN, ON BIPAP. PT BRIEFS ASSESSED, DRY AT THIS TIME. PT ALLOWED TO REST. COMFORT CARE CART ORDERED FOR FAMILY.
--- NOTE | 2019-01-22 10:03 | NUR ---
PATIENT SLEEPING. I&O DONE. PATIENT DID NOT VOID AND DRINK ANY LIQUID DURING THIS PERIOD. RN NOTIFIED. CALL LIGHT WITHIN REACH. NO OTHER NEEDS AT THIS TIME
--- NOTE | 2019-01-22 10:28 | NUR ---
PATIENT RESTING IN BED. PATIENT'S ATTENDS CHANGED. PATIENT REPOSITIONED ON HIS RIGHT SIDE. TWO PERSON ASSISTING. CALL LIGHT WITHIN REACH. NO OTHER NEEDS AT THIS TIME
--- NOTE | 2019-01-22 11:37 | NUR ---
PT ARRIVED TO ROOM, UPDATED ON PT STATUS AND PLAN OF CARE. REASSURED THAT BIPAP CAN REMAIN IN PLACE UNTIL FAMILY HAS ARRIVED AND FOR COMFORT. ALL QUESTIONS ANSWERED. DENIES OTHER NEEDS AT THIS TIME.
--- NOTE | 2019-01-22 12:38 | NUR ---
PT ON BU-PAP ON R SIDE. MET WITH PTS' OUTSIDE OF , VISITED WITH HER AND SHE SAID THAT G.DAUGHTER IS NEEDING TO COME IN AND SEE KRISTA ONE MORE TIME. SHE SAID WITH SADNESS THAT THIS IS NOT HER . HE IS ANGRY, DIFFICULT TO CARE FOR. HAS ALWAYS BEEN HELPFUL TO PEOPLE. A DRUG COUNSELOR WOULD WORK WAY INTO THE NIGHT TO HELP GET VEHICLES RUNNING FOR PEOPLE. MENTIONED THAT [facility] [employer] IS THEIR CHOICE FOR ARRANGEMENTS. WILL PUT IN CHART. I WILL CONTINUE TO CHECK IN ON FAMILY. WILL FOLLOW NEEDED
--- NOTE | 2019-01-22 13:27 | NUR ---
PT WITHOUT BIPAP MASK, PT WITH LABORED BREATHING, RR 26, PT LIFTING ARMS UP TO FACE. PT GIVEN 1MG ATIVAN FOR AGGITATION. DISCUSSED WITH FAMILY AVAILABILITY OF MORPHINE IF BREATHING CONTINUES TO BE LABORED.
--- NOTE | 2019-01-22 13:33 | NUR ---
PATIENT IN BED. VISITOR AND RN IN ROOM. I&O DONE. CALL LIGHT WITHIN REACH. NO OTHER NEEDS AT THIS TIME
--- NOTE | 2019-01-22 13:40 | NUR ---
PT CONTINUES TO HAVE LABORED BREATHING AFTER ATIVAN, GIVEN 10 MG SL MORPHINE, MONITORED FOR EFFECTIVENESS AND THEN GIVEN SECOND DOSE OF 10 MG SL MORPHINE FOR A TOTAL OF 20 MG SL MORPHINE PER ORDER.
--- NOTE | 2019-01-22 14:05 | NUR ---
PT FAMILY REQUESTING OXYGEN FOR COMFORT, PLACED ON 3L OXYMASK. FAMILY EDUCATED ON USE OF MORPHINE FOR COMFORT AND TO HELP WITH WORK OF BREATHING, FAMILY WILL CALL IF PT CONTINUES TO HAVE LABORED BREATHING.
--- NOTE | 2019-01-22 14:51 | NUR ---
FAMILY HAS ARRIVED. DECISION HAS BEEN MADE TO TAKE BI-PAP OFF. GAVE COMFORT, ENCOURAGED FAMILY TO CONTINUE TO TALK TO PT. G.DAUGHTER HAS LEFT, MORE FAMILY HAVE COME. MADE DECISION TO USE [facility] [facility]. FAMILY ALLOWED ME TO PLACE P.QUILT ON PT. PT DID NOT WANT ANY OTHER VISITORS EXCEPT FAMILY. GOD BLESS THEM, PT IS A , WILL FOLLOW NEEDED
--- NOTE | 2019-01-22 15:00 | NUR ---
In to speak with Po's , Tomasa and daughters. Pt is resting with Bipap off and resp are labored. Pt does not appear uncomfortable. Discussed signs of discomfort with family: tense face, agitation, moving arms/legs. Pt at this time has relaxed facial expression, no agitation. Comfort tray is in the room for the family and they deny any needs.
--- NOTE | 2019-01-22 15:05 | NUR ---
PT RESTING QUIETLY IN BED, APPEARS COMFORTABLE AT THIS TIME.
--- NOTE | 2019-01-22 16:33 | NUR ---
PT RESTING QUIETLY IN BED, APPEARS COMFORTABLE.
--- NOTE | 2019-01-22 16:52 | NUR ---
PT WITH HEMATEMESIS, ORAL SUCTIONING PROVIDED, ORAL CARE COMPLETED. GOWN CHANGED.
--- NOTE | 2019-01-22 18:05 | NUR ---
ENTERED ROOM TO FIND THAT PT HAD MODERATE AMOUNT OF BROWNISH RED FOAM COMING FROM THE MOUTH AND SPLATTERED ON THE TOWEL BY PT'S HEAD . PROVIDED ORAL SUCTION TO REMOVE SECRETIONS FROM MOUTH. NOTED BREATHING TO BE LABORED AND AUDIBLY MOIST. MEDICATED WITH ATROPINE DROPS AND SL MORPHINE. PT FACE CLEANED UP AND PROVIDED WITH CLEAN TOWEL BY HIS FACE.
--- NOTE | 2019-01-22 18:35 | NUR ---
PT WITH HEMATEMESIS. NEW ORDER FOR IV ZOFRAN, GIVEN. AT BEDSIDE, UPDATED ON PT STATUS, DENIES OTHER NEEDS AT THIS TIME.
--- NOTE | 2019-01-22 19:40 | NUR ---
RECIVED REPORT FROM DAY SHIFT RN. PATIENT IS RESTING IN BED WITH EYES CLOSED, RR 24. PATIENT APPEARS COMFORTABLE. NO ACUTE SIGNS OF DISTRESS NOTED.
--- NOTE | 2019-01-22 20:27 | NUR ---
RT NOTIFIED THIS RN THAT PATIENT HAD PASSED. LISTENED TO PATIENTS APICAL PULSE FOR 0NE MINUTE. PATIENT HAS NO PULSE AND NO BREATH SOUNDS. TOD 813. DR NOLASCO NOTIFIED, PASTORAL CARE, FAMILY NOTIFIED. DR NOLASCO TO THE FLOOR TO PRONOUNCE PATIENT. PATIENT CLEANED AND REPOSITIONED.
--- NOTE | 2019-01-22 21:06 | NUR ---
PASTORIAL DANNY SPIVEY IN ROOM WITH FAMILY, DONOR LINE NOTIFIED @ 2028. AWAITING CALL BACK. ANNE [facility] NOTIFIED, IN ROUTE.
--- NOTE | 2019-01-22 21:42 | NUR ---
PATIENT HAS NOW LEFT THE FLOOR WITH THE HOME AND STAVE INSPECTOR PATRIC.
--- NOTE | 2019-01-22 21:43 | NUR ---
PT NOT IS NOT APPROPRIATE FOR DONOR, PT LEFT WITH ANNE COTE, AND PATRIC, FROM [facility]. FAMILY IN NEAR 2044 TO SEE PT PRIOR TO PT LEAVING HOSPITAL.
--- NOTE | 2019-01-22 21:48 | NUR ---
I WAS CALLED IN UPON PTS PASSING. FAMILY WAS PRESENT. I TOOK CARE OF PAPER WORK DETAILS WITH FAMILY AND THEN PRAYED WITH THEM PER THEIR REQUEST. PT'S BODY WAS SENT TO [facility].
== END 2019-01-22 21:42 | DRG 189 ==
LOC: MS 20:21
PROVIDERS: ADMIT Internal Medicine
PROC: 5A09357 Assistance with Respiratory Ventilation, Less than 24 Consecutive Hours, Continuous Positive Airway Pressure (ICD-10-PCS; principal; 2019-01-21)
DX: J96.21 Acute and chronic respiratory failure with hypoxia (principal); J96.22 Acute and chronic respiratory failure with hypercapnia; J44.9 Chronic obstructive pulmonary disease, unspecified; L40.9 Psoriasis, unspecified; H91.90 Unspecified hearing loss, unspecified ear; Z66 Do not resuscitate; Z79.899 Other long term (current) drug therapy; Z51.5 Encounter for palliative care; Z87.891 Personal history of nicotine dependence; Z74.01 Bed confinement status; Z99.81 Dependence on supplemental oxygen
CPT/HCPCS: 94640; 94660; 94760; J2060; J2405